=== PATIENT | female | born 1985 | race Caucasian/White ===

== ENCOUNTER 2016-05-01 14:22 | Emergency (ER) | payer SELFPAY ==
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
[~2016-05-01 14:22] MED LIST: ALPRAZOLAM PO; BIRTH CONTROL PILL; CIPRO250 MG; FLEXERIL10 MG PO; FLOMAX0.4 M1 PO; FLUVOXAMINE MA100 MG; KLONOPIN; LAMICTAL PO; NUVARING V1 VAG.RING VG; ORTHO TRI-7 DAYS X; PERCOCET 5-3251 TAB PO; PYRIDIUM PO; TOPROL XL; TOPROL XL100 MG; VICODIN 5/1 TAB 5/50; VICODIN 5/1 TAB 5/50 PO; XANAX1 MG PO
[2016-05-01 14:34] LABS: BASOPHIL% 0.5 % (0-2.5); EOSINOPHIL# 0.1 X10e3 (0-0.7); EOSINOPHIL% 1.9 % (0.0-7.0); HEMATOCRIT 38.9 % (35.0-45.0); HEMOGLOBIN 12.9 gm/dL (12.0-16.0); INR 1.1; LYMPHOCYTE# 2.5 X10e3 (1.0-3.5); LYMPHOCYTE% 34.6 % (17.0-45.0); MEAN CELL VOLUME 87.9 FL (83-96); MEAN CORPUSCULAR HEMOGLOBIN 29.2 PG (28-34); MEAN CORPUSCULAR HGB CONC 33.2 g/dL (30-36); MEAN PLATELET VOLUME 8.9 FL (6.5-11.5); MONOCYTE# 0.7 X10e3 (0-1.0); NEUTROPHIL# 3.8 X10e3 (1.5-7.1); PLATELET COUNT 295 X10e3 (140-420); PROTHROMBIN TIME (PATIENT) 12.5 SECONDS (9.5-12.4); RED BLOOD COUNT 4.43 X10e (3.90-5.30); RED CELL DISTRIBUTION WIDTH 13.4 % (11.0-15.5); WHITE BLOOD COUNT 7.2 X10e3 (4.0-10.5)
[2016-05-01 14:42] LABS: PARTIAL THROMBOPLASTIN TIME 29.3 SECONDS (25.6-38.1)
[2016-05-01 14:43] LABS: ALBUMIN SERUM 4.4 g/dL (3.5-5.0); ALKALINE PHOSPHATASE 60 U/L (32-92); ALT (SGPT) 11 U/L (10-40); AST (SGOT) 19 U/L (10-42); BILIRUBIN, DIRECT 0.1 mg/dL (0.0-0.2); BILIRUBIN,INDIRECT 0.6 mg/dL (0.0-0.9); BILIRUBIN,TOTAL 0.7 mg/dL (0.2-2.0); BLOOD UREA NITROGEN 13 mg/dL (9-23); BUN/CREATININE RATIO 18.57; CALCIUM SERUM 9.1 mg/dL (8.4-10.2); CARBON DIOXIDE 28 mmol/L (22-31); CHLORIDE 103 mmol/L (100-111); CREATININE SERUM 0.7 mg/dL (0.6-1.4); GLOM FILT RATE Estimated ABOVE60 mL/min (>60); GLUCOSE FASTING 101 mg/dL (70-110); POTASSIUM 3.3 mmol/L (3.5-5.1); PROTEIN TOTAL SERUM 7.9 g/dL (6.0-8.3); SODIUM 138 mmol/L (135-145)
[2016-05-01 14:47] LABS: DIFF IND NO
[2016-06-19] MEDS ORDERED: XANAX1 MG PO (11:04)
[2016-06-19] MEDS ORDERED: NEURONTIN300 MG PO (11:05)
[2016-06-19] MEDS ORDERED: LAMICTAL ODT100 MG PO (11:05)
[2016-06-19] MEDS ORDERED: TOPROL XL100 MG PO (11:06)
[2016-07-04] MEDS ORDERED: AMOXICILLIN PO (08:18)
== END 2016-05-01 16:21 | disposition home or self-care (01) ==
LOC: SED 14:22
PROVIDERS: Emergency Medicine
DX: K29.01 Acute gastritis with bleeding (principal); F41.9 Anxiety disorder, unspecified; Z90.710 Acquired absence of both cervix and uterus; F17.200 Nicotine dependence, unspecified, uncomplicated; Z98.890 Other specified postprocedural states
CPT/HCPCS: 36415; 71020; 74177; 80048; 80076; 85025; 85610; 85730; 96361; 96374; 96375; 99284; C9113; J2060; J2405; Q9967

== ENCOUNTER → 2016-06-15 | Outpatient (CLI) | payer MEDICARE, OTHER ==
[~2016-06-15] MED LIST changes: +AMOXICILLIN PO; +LAMICTAL ODT100 MG PO; +NEURONTIN300 MG PO; +TOPROL XL100 MG PO
--- NOTE | ~2016-06-15 | US6 ---
[facility] A Service of [facility] RADIOLOGY TEXT RESULTS PATIENT: PAYTON CARRANZA LOCATION: SGUS : 85 UNIT #: [id number] AGE: [address]: Eliazar Lundberg MD SEX: F ORDER DR: [id number] [place] [id number] O MR#: [id number] Acc #: [id number] NAME: PAYTON CARRANZA : 1985 SEX: F STUDY DATE/TIME: 06/15/2016 11:06 UNIT: SGUS ROOM: STUDY DESCRIPTION: US Abdominal Limited Attending Physician: Eliazar Lundberg M.D. Referring Physician: Eliazar Lundberg M.D. Ordering Physician: Eliazar Lundberg M.D. Primary Care Physician: Miguel Chung M.D. MEDICAL IMAGING REPORT This report is preliminary unless electronic signature is present. EXAM Right upper quadrant ultrasound 06/15/2016 HISTORY Right upper quadrant abdominal pain for 2 weeks. Nausea and vomiting for 2 months. FINDINGS The liver is homogeneous in echotexture and demonstrates no cystic or solid mass lesions. The intra and extrahepatic bile ducts are not dilated. The gallbladder contains a small shadowing gallstone measuring 9 mm but there is no evidence of gallbladder wall thickening or pericholecystic fluid. The common duct measures 3 mm. Pancreas and right kidney are normal. IMPRESSION Cholelithiasis. Dictated by... Primo Camp M.D. THIS IS AN ELECTRONICALLY VERIFIED REPORT Primo Camp M.D. at 06/16/2016 7:55 AM BETTY/amanda TD: 06/15/2016 15:29 JOB #: [id number] MEDICAL IMAGING REPORT Page 1 of 1
== END | disposition home or self-care (01) ==
LOC: SGUS 10:09
DX: R10.11 Right upper quadrant pain (principal); K80.20 Calculus of gallbladder without cholecystitis without obstruction
CPT/HCPCS: 76705

== ENCOUNTER → 2016-06-19 | Day surgery (SDC) | payer MEDICARE, OTHER ==
--- NOTE | ~2016-06-19 | OR ---
Unit #: [id number] #: [id number] Patient: PAYTON CARRANZA [id number] [address] [id number] O MR#: [id number] NAME: PAYTON CARRANZA ROOM: Date of Procedure: 06/19/2016 Admission Date: 06/19/2016 Surgeon: Eliazar Lundberg M.D. : 1985 Attending Physician: Eliazar Lundberg M.D. Primary Care Physician: Primary Care Physician No OPERATIVE REPORT PREOPERATIVE DIAGNOSES 1. Hematemesis. 2. Rectal bleeding. POSTOPERATIVE DIAGNOSES 1. Hematemesis. 2. Rectal bleeding. PROCEDURES PERFORMED 1. Esophagogastroduodenoscopy. 2. Biopsy of antrum for Helicobacter pylori testing. 3. Colonoscopy to terminal ileum. ANESTHESIA Monitored anesthesia care. FINDINGS The patient was found to have mild gastritis on upper endoscopy. The patient had a normal terminal ileum and normal colon other than mild internal hemorrhoids. SPECIMENS Sent to pathology. COMPLICATIONS None apparent. CONDITION The patient tolerated the procedure well. INDICATIONS FOR PROCEDURE The patient is a 30-year-old white female, who presents at this time for evaluation for coffee-ground emesis as well as intermittent rectal bleeding. DESCRIPTION OF PROCEDURE After obtaining informed consent, the patient was brought to the endoscopy suite, and after adequate monitored anesthesia care, had the endoscope placed through the mouth into the upper esophagus under direct vision. It was advanced to the second portion of the duodenum without difficulty and with the lumen always in view. The second and third portion of the duodenum were normal. The duodenal bulb was normal. The pylorus opened normally. There was some mild diffuse gastritis present. No blood was Unit #: [id number] #: [id number] Patient: PAYTON CARRANZA present within the stomach. A biopsy was obtained for Helicobacter pylori testing. On retroflexing back to the GE junction, there was no abnormality seen in the proximal third, middle third, or incisura. On pulling back above the GE junction, there was no stenosis, stricture, or neoplasm seen. There was no esophagitis seen. The remaining portion of the esophagus was within normal limits. Laryngeal structures were grossly normal as viewed from above. At this point in time, the colonoscope was placed through the anus and advanced with the lumen always in view to the level of the cecum. We were able to pass through the ileocecal valve into the terminal ileum. The terminal ileum was normal as was the ileocecal valve and cecum. The ascending colon was normal as was the hepatic flexure, transverse colon, splenic flexure, descending colon, sigmoid colon, and rectum. On retroflexing in the rectum to the anorectal junction, there were some mild internal hemorrhoids present. The scope was removed without difficulty. There was good sphincter tone. No masses palpable. The patient went from the endoscopy suite to the recovery area in stable condition. RECOMMENDATIONS Gastroesophageal reflux sheet given. High-fiber diet, lots of liquids, tucks or wipes p.r.n. My office will contact the patient tomorrow to schedule for laparoscopic cholecystectomy as cholelithiasis was found on her ultrasound. Dictated by... Jesus Howard/camilo TD: 06/19/2016 19:08 JOB #: [id number] CC: [facility] OPERATIVE REPORT Page 1 of 1 X Eliazar Lundberg MD X PROCEDURE OPERATIVE NOTE
== END | disposition home or self-care (01) ==
LOC: COPS 10:12
DX: K92.0 Hematemesis (principal); K62.5 Hemorrhage of anus and rectum; K29.70 Gastritis, unspecified, without bleeding; K64.8 Other hemorrhoids; F32.9 Major depressive disorder, single episode, unspecified; F41.9 Anxiety disorder, unspecified; F17.210 Nicotine dependence, cigarettes, uncomplicated; Z79.899 Other long term (current) drug therapy; Z90.49 Acquired absence of other specified parts of digestive tract; Z90.710 Acquired absence of both cervix and uterus; Z98.51 Tubal ligation status; Z98.890 Other specified postprocedural states
CPT/HCPCS: 87077; J2250

== ENCOUNTER → 2016-06-29 | Outpatient (CLI) | payer MEDICARE, OTHER ==
--- NOTE | ~2016-06-29 | EKG ---
PATIENT: PAYTON CARRANZA UNIT #: [id number] Ventricular Rate: 98 BPM Atrial Rate: 98 BPM P-R Interval: 116 ms QRS Duration: 80 ms Q-T Interval: 320 ms QTC Calculation(Bezet): 408 ms P Dixie: 74 degrees Calculated R Dixie: 79 degrees Calculated T Dixie: 24 degrees Diagnosis Line: Normal sinus rhythm Diagnosis Line: Left ventricular hypertrophy Diagnosis Line: Otherwise normal ECG Diagnosis Line: When compared with ECG of 14-JUN-2015 10:02, Diagnosis Line: No significant change was found Diagnosis Line: Confirmed by KESHAV SPENCER MD ([id number]) on 06/30/2016 Diagnosis Line: 8:03:01 PM INTERPRETING MD: JOHANNA PARNELL
[2016-06-29 15:13] LABS: HEMATOCRIT 41.1 % (35.0-45.0); HEMOGLOBIN 13.5 gm/dL (12.0-16.0); MEAN CELL VOLUME 87.8 FL (83-96); MEAN CORPUSCULAR HEMOGLOBIN 28.9 PG (28-34); MEAN CORPUSCULAR HGB CONC 32.9 g/dL (30-36); MEAN PLATELET VOLUME 8.9 FL (6.5-11.5); RED BLOOD COUNT 4.68 X10e (3.90-5.30); RED CELL DISTRIBUTION WIDTH 13.2 % (11.0-15.5); WHITE BLOOD COUNT 9.5 X10e3 (4.0-10.5)
[2016-06-29 16:00] LABS: ALBUMIN SERUM 4.9 g/dL (3.5-5.0); BILIRUBIN,TOTAL 0.7 mg/dL (0.2-2.0); BUN/CREATININE RATIO 22.22; CALCIUM SERUM 9.7 mg/dL (8.4-10.2); CREATININE SERUM 0.9 mg/dL (0.6-1.4); GLOM FILT RATE Estimated 85.9 mL/min (>60); POTASSIUM 3.6 mmol/L (3.5-5.1); PROTEIN TOTAL SERUM 7.9 g/dL (6.0-8.3)
== END | disposition home or self-care (01) ==
LOC: CAMB 13:55
PROVIDERS: Surgery
DX: Z01.818 Encounter for other preprocedural examination (principal); K80.20 Calculus of gallbladder without cholecystitis without obstruction
CPT/HCPCS: 36415; 80053; 85027; 93005

== ENCOUNTER → 2016-07-04 | Day surgery (SDC) | payer MEDICARE, OTHER ==
--- NOTE | ~2016-07-04 | OR ---
Unit #: [id number] #: [id number] Patient: PAYTON CARRANZA [id number] [address] [address] [id number] O MR#: [id number] NAME: PAYTON CARRANZA ROOM: Date of Procedure: 07/04/2016 Admission Date: 07/04/2016 Surgeon: Anton Dodd III, M.D. : 1985 Attending Physician: Eliazar Lundberg M.D. OPERATIVE REPORT PREOPERATIVE DIAGNOSIS Symptomatic cholelithiasis. POSTOPERATIVE DIAGNOSIS Symptomatic cholelithiasis. PROCEDURE PERFORMED Laparoscopic cholecystectomy. ANESTHESIA General. SPECIMENS Gallbladder to Pathology. COMPLICATIONS None apparent. ESTIMATED BLOOD LOSS Minimal. INDICATIONS FOR PROCEDURE This is a 30-year-old lady, who has symptomatic cholelithiasis. She has undergone multiple abdominal surgeries in the past and understands possible nature of having to convert to an open procedure. She understands the risks and benefits and wishes to proceed. DESCRIPTION OF PROCEDURE After consent was obtained, the patient was brought to the operating room and placed in the supine position. General anesthetic was administered and her abdomen was prepped and draped in standard surgical fashion. I made a 5-mm incision in the right upper quadrant. I used an Optiview to enter into the peritoneal cavity without any difficulty. CO2 pneumoperitoneum was established. Next, a second 5-mm port was placed in the infraumbilical region. An 11-mm port was placed in the midepigastric region and a third 5-mm port was placed in the right lateral subcostal region. I began by retracting the gallbladder superiorly and laterally. I dissected out the cystic duct and cystic artery and after these were carefully identified, I placed two clips proximally and one clip distally along both structures and then they were divided. The gallbladder was then taken off the liver bed using the hook cautery without any spillage of bile. The gallbladder was then extracted through the midepigastric Unit #: [id number] #: [id number] Patient: PAYTON CARRANZA port site without dilatation of the fascia. I had excellent hemostasis and all needle, sponge, and instrument counts were correct x2. I removed all the trocars and released the pneumoperitoneum. The incisions were all injected with 0.25% plain Marcaine. I reapproximated the skin edges with interrupted 4-0 Vicryl subcuticular suture. Steri-Strips were then applied. The patient tolerated the procedure without any problems and returned to the recovery room in stable condition. Dictated by... Anton Dodd III, M.D. VCL/camilo TD: 07/05/2016 01:26 JOB #: [id number] OPERATIVE REPORT Page 1 of 1 X Anton Dodd III, MD PROCEDURE OPERATIVE NOTE
== END | disposition home or self-care (01) ==
LOC: CSUR 07-03 09:00
DX: K80.10 Calculus of gallbladder with chronic cholecystitis without obstruction (principal); I10 Essential (primary) hypertension; R00.2 Palpitations; D64.9 Anemia, unspecified; E87.6 Hypokalemia; Z82.49 Family history of ischemic heart disease and other diseases of the circulatory system; Z82.3 Family history of stroke; Z80.0 Family history of malignant neoplasm of digestive organs; Z82.5 Family history of asthma and other chronic lower respiratory diseases
CPT/HCPCS: 88304; J0330; J1100; J1170; J1644; J2250; J2405; J2710; J3010

== ENCOUNTER 2016-10-03 22:48 | Emergency (ER) | payer MEDICARE, OTHER ==
[~2016-10-03] VITALS: Ht 152.4 cm; Wt 55.3 kg
--- NOTE | ~2016-10-03 | CT2 ---
[facility] A Service of [facility] RADIOLOGY TEXT RESULTS PATIENT: PAYTON CARRANZA LOCATION: [facility] : 85 UNIT #: [id number] AGE: [address]: Natalya Post MD SEX: F ORDER DR: [id number] [facility] [address] [place], [place] [address] [id number] E MR#: [id number] Acc #: [id number] NAME: PAYTON CARRANZA : 1985 SEX: F STUDY DATE/TIME: 10/04/2016 UNIT: [facility] ROOM: STUDY DESCRIPTION: CT Abd and Pelv W Cont Attending Physician: Natalya Post M.D. Ordering Physician: Vish Benoit M.D. Primary Care Physician: Primary Care Physician No MEDICAL IMAGING REPORT This report is preliminary unless electronic signature is present EXAM Abdomen and pelvis CT 10/04 at 01:40 INDICATIONS Generalized abdominal pain with vomiting and diarrhea that started yesterday. TECHNIQUE Axial images were obtained through the abdomen and pelvis following IV contrast administration. Multiplanar reformats were obtained. Comparison made 05/01/2016. The CT exam was performed with one or more of the following radiation dose reduction techniques: automatic exposure control, adjustment of mA and/or kV according to patient size, and iterative reconstruction. FINDINGS Abdomen: Lung bases are clear. Gallbladder surgically absent. No biliary obstruction. This is new since the prior study. Solid abdominal organs are normal. Unopacified GI tract is normal. There is no free fluid. Pelvis: Appendix and uterus are surgically absent. Urinary bladder is distended but otherwise normal. There is a 2.2 cm right ovarian cyst. There is a 1.7 cm left ovarian cyst. There is a bowel staple line in the pelvis that appears to be within small bowel. Correlate with surgical history. GI tract is otherwise unremarkable. IMPRESSION 1. Interval cholecystectomy. No biliary obstruction. 2. No acute findings in the GI tract. The appendix is surgically [facility] A Service of [facility] RADIOLOGY TEXT RESULTS PATIENT: PAYTON CARRANZA LOCATION: [facility] : 85 UNIT #: [id number] AGE: [address]: Natalya Post MD SEX: F ORDER DR: absent. There is a bowel staple line in the pelvis. 3. Bilateral ovarian cyst. The one on right is about 2.2 cm and is unchanged. The one on the left is about 1.7 cm. 4. Distended but otherwise normal urinary bladder. Dictated by... Jerzy Irene Jr., M.D. THIS IS AN ELECTRONICALLY VERIFIED REPORT Jerzy Irene Jr., M.D. at 10/05/2016 4:24 AM PATTI/christin TD: 10/04/2016 07:56 JOB #: [id number] MEDICAL IMAGING REPORT Page 1 of 1 COPY
[2016-10-04 00:27] LABS: BASOPHIL# 0.1 X10e3 (0-0.3); BASOPHIL% 0.4 % (0-2.5); EOSINOPHIL% 0.3 % (0.0-7.0); HEMATOCRIT 36.9 % (35.0-45.0); HEMOGLOBIN 12.3 gm/dL (12.0-16.0); LYMPHOCYTE# 1.7 X10e3 (1.0-3.5); LYMPHOCYTE% 11.8 % (17.0-45.0); MEAN CELL VOLUME 89.7 FL (83-96); MEAN CORPUSCULAR HEMOGLOBIN 29.8 PG (28-34); MEAN CORPUSCULAR HGB CONC 33.2 g/dL (30-36); MEAN PLATELET VOLUME 9.2 FL (6.5-11.5); MONOCYTE# 0.9 X10e3 (0-1.0); MONOCYTE% 5.8 % (3.0-12.0); NEUTROPHIL% 81.7 % (40-75); PLATELET COUNT 255 X10e3 (140-420); RED BLOOD COUNT 4.11 X10e (3.90-5.30); RED CELL DISTRIBUTION WIDTH 13.6 % (11.0-15.5); WHITE BLOOD COUNT 14.7 X10e3 (4.0-10.5)
[2016-10-04 00:29] LABS: DIFF IND NO
[2016-10-04 00:49] LABS: ALBUMIN SERUM 4.4 g/dL (3.5-5.0); ALKALINE PHOSPHATASE 60 U/L (32-92); ALT (SGPT) 17 U/L (10-40); AST (SGOT) 27 U/L (10-42); BILIRUBIN, DIRECT 0.1 mg/dL (0.0-0.2); BILIRUBIN,INDIRECT 0.3 mg/dL (0.0-0.9); BILIRUBIN,TOTAL 0.4 mg/dL (0.2-2.0); BLOOD UREA NITROGEN 9 mg/dL (9-23); BUN/CREATININE RATIO 12.85; CALCIUM SERUM 8.8 mg/dL (8.4-10.2); CARBON DIOXIDE 25 mmol/L (22-31); CHLORIDE 102 mmol/L (100-111); CREATININE SERUM 0.7 mg/dL (0.6-1.4); GLOM FILT RATE Estimated 116.3 mL/min (>60); GLUCOSE FASTING 110 mg/dL (70-110); LIPASE 21 U/L (22-51); POTASSIUM 3.1 mmol/L (3.5-5.1); PROTEIN TOTAL SERUM 7.1 g/dL (6.0-8.3); SODIUM 136 mmol/L (135-145)
[2016-10-04 00:50] LABS: ALCOHOL BLOOD <5 mg/dL (0)
[2016-10-04 01:05] LABS: SALICYLATE <4.0 mg/dL
[2016-10-04 01:07] LABS: ACETAMINOPHEN <10 ug/mL
[2016-10-04 01:22] LABS: URINE SOURCE CLEAN CATCH
[2016-10-04 01:32] LABS: URINE APPEARANCE CLEAR; URINE BILIRUBIN NEG (NEG); URINE BLOOD NEG (NEG); URINE COLOR YELLOW; URINE GLUCOSE NEG (NEG); URINE KETONE NEG (NEG); URINE LEUKOCYTE ESTERASE NEG (NEG); URINE NITRATE NEG (NEG); URINE PROTEIN NEG (NEG); URINE SPECIFIC GRAVITY 1.012 (1.003-1.035); URINE UROBILINOGEN 0.2 MG/DL (NEG)
[2016-10-04 01:38] LABS: CULTURE INDICATED? NO
[2016-10-04 01:42] LABS: AMPHETAMINE NEG (NEG); BARBITURATES NEG (NEG); BENZODIAZEPINES POS (NEG); COCAINE NEG (NEG); MARIJUANA POS (NEG); OPIATES NEG (NEG); TRICYCLIC ANTIDEPRESSANTS NEG (NEG); U METHADONE NEG (NEG)
== END 2016-10-04 10:26 | disposition home or self-care (01) ==
LOC: CED 22:48
PROVIDERS: Emergency Medicine
DX: R11.2 Nausea with vomiting, unspecified (principal); R19.7 Diarrhea, unspecified; F17.200 Nicotine dependence, unspecified, uncomplicated; Z90.49 Acquired absence of other specified parts of digestive tract; Z90.710 Acquired absence of both cervix and uterus; Z79.899 Other long term (current) drug therapy
CPT/HCPCS: 36415; 74177; 80048; 80076; 80307; 81003; 83690; 84703; 85025; 96361; 96374; 96375; 96376; 99284; G0480; J2060; J2405; J2550; Q9967